=== PATIENT | female | born 1985 | race Caucasian/White ===

== ENCOUNTER 2021-04-24 11:09 | Emergency (ER) | payer OTHER ==
[~2021-04-24 11:09] MED LIST: LOESTRIN 21 1-1 EACH PO; PERCOCET 5-3251 EACH PO
[2021-04-24 13:23] LABS: BASOPHIL 0.4 % (0-2); BILIRUBIN NEGATIVE (NEGATIVE); BLOOD NEGATIVE Ery/uL (NEGATIVE); CLARITY CLEAR (CLEAR); COLOR YELLOW (YELLOW); EOSINOPHIL 1.3 % (0-5); GLUCOSE (U) NORMAL (NORMAL); HCT 38.6 % (37.0-47.0); HGB 13.1 g/dl (12.5-16.0); LEUKOCYTES NEGATIVE Leu/uL (NEGATIVE); MCH 30.8 pg (25.0-31.0); MCHC 33.9 g/dL (32.0-36.0); MCV 90.8 fL (78.0-100.0); MONOCYTE 8.5 % (0-12); MPV 9.9 fL (6.0-9.5); NEUTROPHIL 52.5 % (41-80); NITRITE NEGATIVE (NEGATIVE); NRBC 0; PLT 180 K/uL (150-400); PROTEIN NEGATIVE (NEGATIVE); RBC 4.25 M/uL (4.20-5.40); RDW 12.6 % (11.5-14.0); UROBILINOGEN 0.2 mg/dL (0.2-1.0); WBC 7.4 K/uL (4.0-10.5); pH 6.5 (5.0-9.0)
[2021-04-24 13:49] LABS: BILIRUBIN - TOTAL 0.3 mg/dL (0.2-1.0); BUN/CREAT RATIO (CALC) 13.1 RATIO; CREATININE 0.84 mg/dL (0.51-0.95); GLOBULIN (CALCULATION) 3.3 g/dL; TOTAL PROTEIN 7.3 g/dL (6.4-8.2)
[2021-04-24 14:01] LABS: LACTIC ACID 0.9 mmol/L (0.4-1.9)
[2021-04-24] MEDS ORDERED: BENTYL10 MG PO (15:54)
== END 2021-04-24 16:25 | disposition home or self-care (01) ==
LOC: FER 11:09
PROVIDERS: Internal Medicine
DX: R10.9 Unspecified abdominal pain (principal); R19.7 Diarrhea, unspecified
CPT/HCPCS: 36415; 80053; 81003; 82150; 83605; 83690; 85025; 87339; J1885; J2405; J7030; Q9967

== ENCOUNTER 2021-04-28 08:02 | Day surgery (SDC) | payer OTHER ==
[~2021-04-28 08:02] MED LIST changes: +BENTYL10 MG PO
[2021-04-28 09:01] LABS: BILIRUBIN NEGATIVE (NEGATIVE); BLOOD NEGATIVE Ery/uL (NEGATIVE); CLARITY CLEAR (CLEAR); COLOR YELLOW (YELLOW); GLUCOSE (U) NORMAL (NORMAL); LEUKOCYTES NEGATIVE Leu/uL (NEGATIVE); NITRITE NEGATIVE (NEGATIVE); PROTEIN NEGATIVE (NEGATIVE); SPECIFIC GRAVITY 1.015 (1.001-1.030); UROBILINOGEN 0.2 mg/dL (0.2-1.0)
[2021-04-28 09:01] LABS: BASOPHIL 0.9 % (0-2); EOSINOPHIL 1.9 % (0-5); HCT 40.1 % (37.0-47.0); HGB 13.4 g/dl (12.5-16.0); MCH 30.3 pg (25.0-31.0); MCHC 33.4 g/dL (32.0-36.0); MCV 90.7 fL (78.0-100.0); MONOCYTE 6.9 % (0-12); MPV 9.8 fL (6.0-9.5); NEUTROPHIL 49.1 % (41-80); NRBC 0; PLT 168 K/uL (150-400); RBC 4.42 M/uL (4.20-5.40); RDW 12.4 % (11.5-14.0); WBC 4.6 K/uL (4.0-10.5)
[2021-04-28 09:31] LABS: ALBUMIN 3.9 g/dL (3.4-5.0); BILIRUBIN - TOTAL 0.3 mg/dL (0.2-1.0); BUN/CREAT RATIO (CALC) 17.5 RATIO; CREATININE 0.8 mg/dL (0.51-0.95); GLOBULIN (CALCULATION) 3.3 g/dL; POTASSIUM 4.3 mmol/L (3.5-5.1); TOTAL PROTEIN 7.2 g/dL (6.4-8.2)
[2021-04-28] MEDS ORDERED: OXY-IR 5MG5 MG PO (16:04)
[2021-04-28] MEDS ORDERED: ACETAMINOPHEN500 M1 PO (16:04)
[2021-04-28] MEDS ORDERED: COLACE100 MG PO (16:04)
[2021-04-28] MEDS ORDERED: MOTRIN600 MG PO (16:04)
== END 2021-04-28 18:46 | disposition home or self-care (01) ==
LOC: FER 08:02 → FOR 11:48
PROVIDERS: Emergency Medicine
DX: K81.1 Chronic cholecystitis (principal); K82.8 Other specified diseases of gallbladder; Z20.822 Contact with and (suspected) exposure to COVID-19
CPT/HCPCS: 36415; 80053; 81003; 85025; 99284; J1100; J1170; J1644; J1885; J2250; J2405; J2704; J3010; J7120; U0002